=== PATIENT | female | born 2000 | race Caucasian/White ===

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

== ENCOUNTER → 2022-07-22 12:18 | Outpatient (CLI) | payer BC, OTHER, SELFPAY ==
[2022-07-22 13:28] LABS: Add Manual Diff / Slide Review NO; Basophils Absolute Auto 0 /uL (0-100); Basophils Percent Auto 0.5 % (0-2); Eosinophils Absolute Auto 100 /uL (0-450); Eosinophils Percent Auto 0.6 % (2-4); Hematocrit 37.3 % (36-46); Hemoglobin 12.9 g/dL (12.0-16.0); Lymphocytes Absolute Auto 2600 /uL (1100-4500); Lymphocytes Percent Auto 29.4 % (25-40); Mean Corpuscular HGB Conc 34.6 % (30-36); Mean Corpuscular Hemoglobin 30.8 PG (26-34); Mean Corpuscular Volume 88.9 fL (80-100); Monocytes Absolute Auto 700 /uL (0-900); Monocytes Percent Auto 7.8 % (3-14); Neutrophils Absolute Auto 5500 /uL (1500-7000); Neutrophils Percent Auto 61.7 % (50-75); Platelet Count 345 X10^3/uL (150-400); Red Blood Cell Count 4.19 X10^6/uL (4.0-5.2); Red Cell Distribution Width 12.7 % (11.6-14.8)
[2022-07-22 13:55] LABS: HEMOLYSIS < 15 (0-50)
[2022-07-22 14:00] LABS: Alanine Aminotransferase 38 IU/L (<35); Albumin 4.8 g/dL (3.5-5.0); Albumin Globulin Ratio 1.5 (1.0-2.8); Alkaline Phosphatase 61 U/L (38-126); Aspartate Aminotransferase 36 IU/L (14-36); BUN Creatinine Ratio 24.1 (6-22); Bilirubin Total 0.4 mg/dL (0.2-1.3); Blood Urea Nitrogen 13 mg/dL (7-17); Calcium 9.5 mg/dL (8.4-10.2); Carbon Dioxide 29 mmol/L (22-32); Chloride 97 mmol/L (98-107); Estimated Glomerular Filt Rate > 60 mL/min (>60); Globulin 3.1 g/dL (1.7-4.1); Glucose 93 mg/dL (70-100); Potassium 4.5 mmol/L (3.4-5.1); Sodium 136 mmol/L (137-145); Total Protein 7.9 g/dL (6.3-8.2)
[2022-07-22 15:04] LABS: Free T4, Direct Thyroxine 0.86 ng/dL (0.78-2.19)
[2022-07-29 14:55] LABS: Vitamin B12 Reflex MMA if <400 429 pg/mL (239-931)
== END ==
PROVIDERS: Family Provider Pediatrics; PCP Family Medicine; Referring Provider Registered Nurse; Visit Provider Registered Nurse
DX: R42 Dizziness and giddiness (principal)
CPT/HCPCS: 36415; 80053; 82607; 84439; 84443; 85025

== ENCOUNTER → 2022-07-26 18:00 | Outpatient (CLI) | payer BC, SELFPAY | PROVIDERS: Family Provider Pediatrics; PCP Family Medicine; Visit Provider Nurse Practitioner Family | DX: R30.0 Dysuria (principal) | CPT/HCPCS: 87077; 87086; 87147 ==

== ENCOUNTER → 2022-09-25 11:36 | Outpatient (CLI) | payer BC, SELFPAY ==
--- NOTE | 2022-09-25 11:38 | DI.CT.S_ITS ---
PROCEDURE: CT ABDOMEN PELVIS W CON INDICATIONS: 22-year-old female with nausea, fever, pain TECHNIQUE: After the administration of intravenous contrast, axial sections acquired from the lung bases to the pubic symphysis. Coronal and sagittal reformats were performed. For radiation dose reduction, the following was used: automated exposure control, adjustment of mA and/or kV according to patient size. COMPARISON: None. FINDINGS: Lower thorax: The lung bases are clear. Heart size normal. No hiatal hernia. Liver: Normal in size and attenuation. No contour deformity present. Biliary system: No calcified cholelithiasis or pericholecystic inflammation. No intra or extrahepatic bile duct dilatation. Pancreas: Unremarkable without mass or inflammation evident. Spleen: Normal in size and density. Adrenals: Normal morphology and density. Reproductive system: 3.1 cm right adnexal cyst, probable ovarian cyst. No free fluid Urinary system: Normal renal size and attenuation. No renal calculi, hydronephrosis, or solid mass present. Urinary bladder unremarkable. Gastrointestinal system: The bowel is unremarkable without evidence of bowel obstruction or inflammation. The stomach appears unremarkable. Appendix: Appendix is slightly prominent at 6 mm, but does contain air. Several nonenlarged lymph nodes present in the right lower quadrant measuring to 6 mm in short axis. Peritoneal spaces: No mesenteric or retroperitoneal adenopathy. No free air. No free fluid. Vasculature: The IVC, aorta and iliac vasculature are unremarkable. Abdominal wall: Abdominal wall intact without evidence of ventral or inguinal hernias. Musculoskeletal: Normal bone mineralization. No acute fractures. IMPRESSION: 1. Slightly prominent appendix without significant periappendiceal inflammatory changes. Consider short-term interval clinical follow-up to exclude developing appendicitis. 2. Right ovarian 3.1 cm cyst Approved by: Osman Rodrigez M.D. on 09/25/2022 at 13:49
== END ==
PROVIDERS: Family Provider Pediatrics; PCP Family Medicine; Referring Provider Surgery; Visit Provider Surgery
DX: R11.0 Nausea (principal); R10.9 Unspecified abdominal pain; N83.201 Unspecified ovarian cyst, right side; M54.50 Low back pain, unspecified; G89.29 Other chronic pain
CPT/HCPCS: 74177; Q9967

== ENCOUNTER → 2022-10-16 10:02 | Outpatient (CLI) | payer BC, SELFPAY | PROVIDERS: Family Provider Pediatrics; PCP Family Medicine; Visit Provider Family Medicine | DX: N89.8 Other specified noninflammatory disorders of vagina (principal); Z72.51 High risk heterosexual behavior | CPT/HCPCS: 87210 ==

== ENCOUNTER → 2022-10-16 10:25 | Outpatient (CLI) | payer BC, SELFPAY ==
[2022-10-17 08:11] LABS: RPR Screen Non Reactive (Non Reactive)
[2022-10-17 18:09] LABS: Hepatitis B Surface Antigen NEGATIVE s/c (NEGATIVE)
[2022-10-17 18:33] LABS: HIV 1 & 2 Ab/Ag 4th Gen Combo NEGATIVE (NEGATIVE); Hep C Virus Ab w/Reflex Quant NEGATIVE s/c (NEGATIVE)
== END ==
PROVIDERS: Family Provider Pediatrics; PCP Family Medicine; Referring Provider Family Medicine; Visit Provider Family Medicine
DX: N89.8 Other specified noninflammatory disorders of vagina (principal); Z72.51 High risk heterosexual behavior
CPT/HCPCS: 36415; 86592; 86803; 87210; 87340; 87389